=== PATIENT | female | born 1950 | race Caucasian/White ===

== ENCOUNTER → 2019-04-25 | Emergency (ER) | payer OTHER ==
[~2019-04-25] VITALS: Ht 147.3 cm; Wt 47.6 kg
[~2019-04-25] MED LIST: ATIVAN0.5 M1; LEVOTHYROXINE50 MCG; LIPITOR20 MG; QUETIAPINE FUM100 MG; TOPROL XL25 M1; VITAMIN D31000 UNIT
== END | disposition home or self-care (01) ==
LOC: ER 18:54
DX: S01.82XA Laceration with foreign body of other part of head, initial encounter (principal); R00.0 Tachycardia, unspecified; W45.8XXA Other foreign body or object entering through skin, initial encounter; Y93.89 Activity, other specified; Y92.128 Other place in nursing home as the place of occurrence of the external cause; Y99.8 Other external cause status